=== PATIENT | male | born 1955 | race Caucasian/White ===

== ENCOUNTER 2017-08-11 07:25 | Day surgery (SDC) | payer OTHER ==
[2017-08-09 12:12] LABS: BASOPHILS 0.3 %; BASOPHILS ABSOLUTE 0.03 10/3/uL (0.0-0.16); EOSINOPHILS 2.1 %; EOSINOPHILS ABSOLUTE 0.21 10/3/uL (0.0-0.53); HEMATOCRIT 41.4 % (40.0-51.0); HEMOGLOBIN 13.5 g/dL (13.6-17.8); IMMATURE GRANULOCYTES 0.3 %; IMMATURE GRANULOCYTES ABSOLUTE 0.03 10/3/uL (0.0-0.11); LYMPHOCYTES 22.4 %; LYMPHOCYTES ABSOLUTE 2.22 10/3/uL (0.67-4.30); MEAN CORPUS HGB CONC 32.6 g/dL (32.0-36.0); MEAN CORPUSCULAR HEMOGLOB 28.5 pg (26.0-34.0); MEAN CORPUSCULAR VOLUME 87.5 fL (80-100); MEAN PLATELET VOLUME 10.9 fL (9.2-13.0); MONOCYTES 7.7 %; MONOCYTES ABSOLUTE 0.76 10/3/uL (0.21-1.20); NEUTROPHILS 67.2 %; NEUTROPHILS ABSOLUTE 6.67 10/3/uL (2.02-8.40); PLATELET COUNT 147 10/3/uL (150-400); RBC DISTRIBUTION WIDTH 15.4 % (12.0-16.0); RED CELL COUNT 4.73 10/6/uL (4.7-6.1); WHITE BLOOD CELLS 9.9 10/3/uL (4.5-10.5)
[2017-08-09 12:13] LABS: MANUAL DIFF NO %
[2017-08-09 12:20] LABS: INTERNATIONAL NORMAL RATI 1.2 UNITS (-); PROTIME (NOT ORD) 14.9 SEC (12.0-14.5)
[2017-08-09 12:21] LABS: PARTIAL THROMBO TIME 30.6 SEC (22.5-37.2)
[2017-08-09 12:25] LABS: BUN (BLOOD UREA NITROGEN) 16 MG/DL (6-23); CALCIUM, SERUM 8.9 MG/DL (8.5-10.4); CHLORIDE, SERUM 108 MMOL/L (96-112); CO2 (CARBON DIOXIDE) 26 MMOL/L (24-34); GFR AFRICAN AMERICAN 104 ML/MIN (>=60); GFR NON AFRICAN AMERICAN 90 ML/MIN (>=60); GLUCOSE, SERUM 144 MG/DL (60-99); POTASSIUM, SERUM 3.9 MMOL/L (3.5-5.3); SODIUM, SERUM 140 MMOL/L (135-148)
[~2017-08-11] VITALS: Ht 190.5 cm; Wt 114.8 kg
--- NOTE | ~2017-08-11 | OP ---
Record Of Operation [facility] [address] [place]. [address] NAME: MAURISIO CRENSHAW : 51 STATUS : [facility]#: [id number] AGE: 62 ADM/REG DATE : 08/11/17 MR#: [id number] REPORT SERV DATE: 08/11/17 DICTATED BY: ROLANDO AUGUST DATE: 08/11/17 REPORT STATUS : Draft TRANSCRIBED BY: MODL DATE: 08/11/17 DATE OF PROCEDURE: 08/11/2017 PREOPERATIVE DIAGNOSES: Urinary retention and benign prostatic hypertrophy. POSTOPERATIVE DIAGNOSES: Urinary retention and benign prostatic hypertrophy. PROCEDURE: Cystoscopy, GreenLight photo laser vaporization of the prostate. ANESTHESIA: General. BLOOD LOSS: Zero. FLUIDS: 700 mL of crystalloid. DRAINS: A 20-Nauruan August catheter per urethra. INDICATIONS: A 62-year-old male with urinary retention. He has failed multiple voiding trials and medical therapy. FINDINGS: Large median lobe and left lateral lobe. TECHNIQUE: The patient was identified, brought to the operating room, administered general anesthetic agent by the Anesthesia Service, and intubated. He was positioned in dorsal lithotomy position. The penis, groin, scrotum, and perineum were prepped and draped in the usual sterile fashion. A 22-Nauruan cystoscopic sheath with 30-degree lens was used for cystourethroscopy. The anterior and bulbous urethra were normal. The prostatic urethra was hypertrophied with lateral lobe hypertrophy and a large median lobe that appears occlusive. The bladder was entered and surveyed. He has a very "floppy" bladder. There was really no significant trabeculation. The ureteral orifices were normal in position, location, and configuration. There were no urothelial tumors or no stones. I removed the cystoscope and inserted a 24-Nauruan continuous-flow laser sheath with the obturator. The obturator was removed and the laser bridge with a 30-degree lens and a GreenLight XPS laser fiber inserted. I began at a 100 mejía power, cut a groove through the prostate from the bladder neck back to the verumontanum. I carried this groove down to the capsule of prostate at the 5 o'clock position. I then did the same at the 7 o'clock position. I then increased by power to 170 mejía power and ablated the left lateral lobe, which included the median lobe. I then ablated the floor of the prostate and the right lateral lobe. I turned the power back down to 110 mejía and ablated anteriorly. The bladder was irrigated free of all debris with the Sirena evacuators. I removed the scope, placed a 20-Nauruan August catheter, inserted 10 mL sterile water in the catheter balloon, and irrigated the bladder clear. The patient was then awakened and taken to the recovery unit in stable and satisfactory condition. Record Of Operation [address] [place]. [address] NAME: MAURISIO CRENSHAW : 51 STATUS : [facility] [place] PAT#: [id number] AGE: 62 ADM/REG DATE : 08/11/17 MR#: [id number] REPORT SERV DATE: 08/11/17 DICTATED BY: ROLANDO AUGUST DATE: 08/11/17 REPORT STATUS : Draft TRANSCRIBED BY: CAMERON DATE: 08/11/17 PF/CAMERON Rolando August M.D. / [id number] CC: Maribel Monroy D.O.
[~2017-08-11 07:25] MED LIST: ACET500CAP PO; ALLERGY RELIEF PO; ALTA2.5 PO; ASAB PO; BENTYL10 PO; BISR PO; BIST PO; BYSTOLIC10 MG PO; BYSTOLIC5 MG PO; FISH-EPA1000 MG PO; FLOMAX4 PO; HABIT21 TOP; KDUR10 PO; KLOR-CON 1010 MEQ PO; L20 PO; L40 PO; LEVSINTAB PO; LIPITOR20 PO; NICODERM C21 MG/241 TOP; PCET PO; PR25 PO; PROTONIX PO; T PO; VICODINTAB PO; XARELTO20 MG PO
== END 2017-08-11 14:55 | disposition home or self-care (01) ==
LOC: SDC 07:25
PROVIDERS: Urology
PROC: 0V508ZZ Destruction of Prostate, Via Natural or Artificial Opening Endoscopic (ICD-10-PCS; principal; 2017-08-11 09:00)
DX: N40.0 Benign prostatic hyperplasia without lower urinary tract symptoms (principal); R33.9 Retention of urine, unspecified; J44.9 Chronic obstructive pulmonary disease, unspecified; I71.4 Abdominal aortic aneurysm, without rupture; I25.10 Atherosclerotic heart disease of native coronary artery without angina pectoris; I50.9 Heart failure, unspecified; I25.2 Old myocardial infarction; I82.402 Acute embolism and thrombosis of unspecified deep veins of left lower extremity; N18.9 Chronic kidney disease, unspecified; Z95.5 Presence of coronary angioplasty implant and graft; F17.210 Nicotine dependence, cigarettes, uncomplicated; Z85.038 Personal history of other malignant neoplasm of large intestine; Z95.0 Presence of cardiac pacemaker; Z98.890 Other specified postprocedural states; Z79.82 Long term (current) use of aspirin; Z79.899 Other long term (current) drug therapy
CPT/HCPCS: 80048; 85025; 85610; 85730; 88305; 93005; J2250; J2405; J3010